=== PATIENT | female | born 1960 | race Caucasian/White ===

== ENCOUNTER 2021-01-10 14:02 | Inpatient (IN) | payer OTHER ==
[~2021-01-10] VITALS: Ht 149.9 cm; Wt 53.0 kg
[2021-01-10 17:07] LABS: BASOPHILS % (AUTO) 0.6 % (0.0-2.0); EOSINOPHILS % (AUTO) 0.5 % (1.0-6.0); HEMATOCRIT 37.1 % (36-46); HEMOGLOBIN 12.1 g/dL (12.0-16.0); LYMPHOCYTES # (AUTO) 2.7 K/uL (1.0-4.8); LYMPHOCYTES % (AUTO) 22.5 % (22.0-44.0); MEAN CORPUSCULAR HEMOGLOBIN 32.2 pg (26.0-34.0); MEAN CORPUSCULAR HGB CONC 32.6 G/dL (31.0-37.0); MEAN CORPUSCULAR VOLUME 99 fL (80-100); MONOCYTES # (AUTO) 0.6 K/uL (0.1-1.0); MONOCYTES % (AUTO) 4.6 % (2.0-9.0); NEUTROPHILS # (AUTO) 8.6 K/uL (1.8-7.7); NEUTROPHILS % (AUTO) 71.8 % (40.0-70.0); PLATELET COUNT (AUTO) 304 K/uL (150-450); RED BLOOD CELL COUNT(AUTO) 3.76 MIL/uL (4.00-5.20); RED CELL DISTRIBUTION WIDTH 14.1 % (11.5-14.5)
[2021-01-10 17:36] LABS: ALANINE AMINOTRANSFERASE 37 U/L (12-78); ALBUMIN 2.3 g/dL (3.4-5.0); ALKALINE PHOSPHATASE 149 U/L (46-116); ANION GAP 10 mmol/L (8-16); ASPARTATE AMINOTRANSFERASE 60 U/L (15-37); CALCIUM, TOTAL 8.7 mg/dL (8.8-10.5); CARBON DIOXIDE 27 mmol/L (22-29); CHLORIDE 103 mmol/L (98-107); CREATININE 0.87 mg/dL (0.60-1.30); FREE T4 (FREE THYROXINE) 1.32 ng/dL (0.76-1.46); GLOMERULAR FILTR. RATE CALC > 60 mL/min (>60); GLUCOSE,RANDOM 158 mg/dL (70-110); POTASSIUM 3.2 mmol/L (3.5-5.1); SODIUM SERUM 140 mmol/L (136-145); THYROID STIMULATING HORMONE 11.72 uIU/mL (0.36-3.74); TOTAL PROTEIN, SERUM 6.8 g/dL (6.4-8.2)
[2021-01-10 17:37] LABS: COVID AG,FIA SOURCE NASOPHARYNGEAL
[2021-01-10 17:42] LABS: UREA NITROGEN, BLOOD 1 mg/dL (7-18)
[2021-01-10 17:49] LABS: APPEARANCE,URINE CLOUDY (CLEAR); BILIRUBIN,URINE NEGATIVE (NEGATIVE); GLUCOSE, URINE (UA) NEGATIVE (NEGATIVE); KETONES,URINE NEGATIVE (NEGATIVE); LEUKOCYTE ESTERASE ,URINE MODERATE (NEGATIVE); NITRATE,URINE NEGATIVE (NEGATIVE); OCCULT BLOOD,URINE NEGATIVE (NEGATIVE); PROTEIN,URINE POS 1+ (NEGATIVE)
[2021-01-10 17:53] LABS: BACTERIA,URINE Moderate /HPF (None Seen); RBC,URINE 0-2 /HPF (0-2); SQUAMOUS EPITHELIAL CELL,UR Moderate /LPF (None Seen)
[2021-01-10 17:55] LABS: AMPHET/METH SCREEN,URINE NEGATIVE (NEGATIVE); BARBITURATE SCREEN, URINE NEGATIVE (NEGATIVE); BENZODIAZEPINES SCREEN,URINE NEGATIVE (NEGATIVE); CANNABINOID SCREEN,URINE POSITIVE (NEGATIVE); COCAINE SCREEN,URINE NEGATIVE (NEGATIVE); METHADONE SCREEN, URINE NEGATIVE (NEGATIVE); OPIATE SCREEN,URINE NEGATIVE (NEGATIVE); PHENCYCLIDINE SCREEN,URINE NEGATIVE (NEGATIVE)
[2021-01-10] MEDS ORDERED: LEVOTHYROXINE SODIUM 88 MCG TABLET PO ONE (18:15)
[2021-01-10] MEDS ORDERED: CefTRIAXone 1 GM/DEXTROSE 50 ML IV ONE (18:15)
[2021-01-10] MEDS ORDERED: POTASSIUM CHLORIDE 20 MEQ ER TABLET PO PRN (19:15)
[2021-01-10] MEDS ORDERED: ACETAMINOPHEN 325 MG TABLET PO PRN (19:15)
[2021-01-10] MEDS ORDERED: POTASSIUM CHL 10 MEQ/WATER 50 ML IV PRN (19:15)
[2021-01-10] MEDS ORDERED: MAGNESIUM HYDROXIDE SUSPENSION 30 ML UDCUP PO PRN (19:15)
[2021-01-10 21:18] VITALS: BP 149/97
[2021-01-10] MEDS: CIPROFLOXACIN HCL 250 MG TABLET PO SCH (22:42)
[2021-01-10] MEDS: QUEtiapine FUMARATE 25 MG TABLET PO SCH (22:42)
[2021-01-10] MEDS: RisperiDONE 0.5 MG TABLET PO SCH (22:42)
[2021-01-11 05:35] VITALS: BP 105/65
[2021-01-11] MEDS: LEVOTHYROXINE SODIUM 88 MCG TABLET PO SCH (06:23)
[2021-01-11] MEDS ORDERED: DEXTROSE 50%-WATER 25 GM/50 ML SYRINGE IVP PRN (07:15)
[2021-01-11 07:59] VITALS: BP 105/64
[2021-01-11] MEDS: INSULIN LISPRO 100 UNITS/ML SQ PRN ×3 (08:17→16:45)
[2021-01-11] MEDS: FAMOTIDINE 20 MG TABLET PO SCH (08:50)
[2021-01-11] MEDS: RisperiDONE 0.5 MG TABLET PO SCH ×2 (08:50→19:59)
[2021-01-11] MEDS: MULTIVITAMINS WITH MINERALS, THERAPEUTIC TABLET PO SCH (08:50)
[2021-01-11] MEDS: CIPROFLOXACIN HCL 250 MG TABLET PO SCH ×2 (08:50→19:59)
[2021-01-11] MEDS: ASPIRIN 81 MG CHEWABLE TABLET PO SCH (08:50)
[2021-01-11 11:39] VITALS: BP 111/73
[2021-01-11 15:48] VITALS: BP 126/87
[2021-01-11 18:59] LABS: GLUCOMETER DEV NAME(LOC) 6N.1; GLUCOSE,POINT OF CARE 223 MG/DL (70-110)
[2021-01-11 18:59] LABS: GLUCOMETER DEV NAME(LOC) 6N.1; GLUCOSE,POINT OF CARE 222 MG/DL (70-110)
[2021-01-11 18:59] LABS: GLUCOMETER DEV NAME(LOC) 6S.1; GLUCOSE,POINT OF CARE 149 MG/DL (70-110)
[2021-01-11 19:28] VITALS: BP 117/72
[2021-01-11] MEDS: QUEtiapine FUMARATE 25 MG TABLET PO SCH (20:02)
[2021-01-11 23:53] LABS: GLUCOMETER DEV NAME(LOC) 6S.1; GLUCOSE,POINT OF CARE 115 MG/DL (70-110)
[2021-01-12 04:55] VITALS: BP 127/77
[2021-01-12] MEDS: LEVOTHYROXINE SODIUM 88 MCG TABLET PO SCH (06:00)
[2021-01-12 07:19] LABS: GLUCOMETER DEV NAME(LOC) 6N.1; GLUCOSE,POINT OF CARE 109 MG/DL (70-110)
[2021-01-12 07:31] VITALS: BP 134/87
[2021-01-12] MEDS: MULTIVITAMINS WITH MINERALS, THERAPEUTIC TABLET PO SCH (08:16)
[2021-01-12] MEDS: CIPROFLOXACIN HCL 250 MG TABLET PO SCH (08:16)
[2021-01-12] MEDS: RisperiDONE 0.5 MG TABLET PO SCH (08:16)
[2021-01-12] MEDS: ASPIRIN 81 MG CHEWABLE TABLET PO SCH (08:16)
[2021-01-12] MEDS: FAMOTIDINE 20 MG TABLET PO SCH (09:00)
[2021-01-12 11:10] VITALS: BP 140/81
[2021-01-12] MEDS ORDERED: SUMA25TA9 PO (11:22)
[2021-01-12] MEDS ORDERED: ONDA-104 PO (11:23)
[2021-01-12 11:46] LABS: GLUCOMETER DEV NAME(LOC) 6N.1; GLUCOSE,POINT OF CARE 241 MG/DL (70-110)
[2021-01-12] MEDS ORDERED: CIPR250T6 PO (12:22)
[2021-01-12] MEDS ORDERED: LEVO88TA4 PO (12:23)
[2021-01-12] MEDS ORDERED: QUET25TA PO (12:23)
[2021-01-12] MEDS ORDERED: RISP0.5T39 PO (12:24)
[2021-01-12] MEDS: INSULIN LISPRO 100 UNITS/ML SQ PRN (12:46)
== END 2021-01-12 14:22 | disposition home or self-care (01) | DRG 884 ==
LOC: EMS 14:02 → 6N 19:00
PROVIDERS: ADMIT Internal Medicine; ATTEND Internal Medicine
DX: F03.91 Unspecified dementia, unspecified severity, with behavioral disturbance (principal); N39.0 Urinary tract infection, site not specified; R65.10 Systemic inflammatory response syndrome (SIRS) of non-infectious origin without acute organ dysfunction; Z16.12 Extended spectrum beta lactamase (ESBL) resistance; G93.40 Encephalopathy, unspecified; E03.9 Hypothyroidism, unspecified; F04 Amnestic disorder due to known physiological condition; B96.20 Unspecified Escherichia coli [E. coli] as the cause of diseases classified elsewhere; E11.9 Type 2 diabetes mellitus without complications; Z20.822 Contact with and (suspected) exposure to COVID-19
CPT/HCPCS: 70450; 80053; 81001; 82607; 82962; 84132; 84439; 84443; 85025; 87077; 87086; 87186; 99285; G0480; J0696